=== PATIENT | male | born 1970 | race Caucasian/White ===

== ENCOUNTER 2017-08-19 10:36 | Emergency (ER) | payer SELFPAY ==
[2017-08-19] MEDS ORDERED: TYLENOL 325 MG PO STA (11:05)
[2017-08-19] MEDS ORDERED: TYLENOL 325 MG ONE (11:09)
--- NOTE | 2017-08-19 11:11 | ERPHSYRPT ---
- History of Present Illness Time Seen by Provider: 08/19/17 10:50 Source: patient Exam Limitations: clinical condition Patient Subjective Stated Complaint: states on thursday he was walking through a yard and stepped in a hole twisting right knee. states heard a pop and has pain in knee since then. Triage Nursing Assessment: ambulated to room per self. skin w/d, color normal. right knee tender to touch. no swelling or deformity noted. good pedal pulse. foot warm and normal color. good cap refill. Physician History: PATIENT WITH A HISTORY OF CHRONIC KNEE PAIN STATES HE STEPPED UNTO UNEVEN GROUND 2 DAYS AGO, TWISTED RIGHT KNEE AND FELT POPPING SENSATION OVER OUTER ASPECT OF KNEE, HAS PAIN UPON WEIGHT BEARING. Method of Injury: twisted Occurred: days ago Quality: constant Severity of Pain-Max: moderate Severity of Pain-Current: moderate Lower Extremities Pain: knee: right Modifying Factors: Improves With: movement Associated Symptoms: unable to bear weight Allergies/Adverse Reactions: No Known Drug Allergies Allergy (Unverified 08/19/17 11:02) Home Medications: Gabapentin [Neurontin] 600 mg PO TID 08/19/17 [History] Insulin Glargine,Hum.rec.anlog [Basaglar Kwikpen U-100] 80 unit SQ BID 08/19/17 [History] Lisinopril 20 mg [Zestril 20 MG] 20 mg PO DAILY 08/19/17 [History] Metformin HCl [Glucophage] 1,000 mg PO BID 08/19/17 [History] Omeprazole 40 mg PO DAILY 08/19/17 [History] Simvastatin 40 mg [Zocor 40 mg] 40 mg PO DAILY 08/19/17 [History] Hx Tetanus, Diphtheria Vaccination/Date Given: Yes Hx Influenza Vaccination/Date Given: No Hx Pneumococcal Vaccination/Date Given: No - Review of Systems Constitutional: No Symptoms Musculoskeletal: Injury, Joint Pain, Joint Swelling Skin: No Symptoms Psychological: No Symptoms - Past Medical History Pertinent Past Medical History: Yes Neurological History: Peripheral Neuropathy ENT History: Cataracts Cardiac History: High Cholesterol, Hypertension Endocrine Medical History: Diabetes Type II GI Medical History: GERD - Past Surgical History Past Surgical History: Yes - Social History Smoking Status: Current every day smoker How long have you smoked: 10 Exposure to second hand smoke: No Drug Use: none Patient Lives Alone: No - Nursing Vital Signs Nursing Vital Signs: Initial Vital Signs Pulse Rate 88 08/19/17 10:37 Respiratory Rate 18 08/19/17 10:37 Blood Pressure 151/81 08/19/17 10:37 O2 Sat by Pulse Oximetry 97 08/19/17 10:37 Pain Scale Pain Intensity 8 - Physical Exam General Appearance: no apparent distress Knees Exam: right knee: pain, soft tissue tenderness (TENDERNESS OVER LATERAL FEMEROL CONDYLE, PATELLA MIDLINE AND MOBILE WITH PAIN, LIMITED RANGE OF MOTION DUE TO PAIN. 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, NO FRACTURE OR DISLOCATION) Ordered Tests: Active Orders 24 hr Category Date Time Status KNEE (3 VIEWS) Stat Exams 08/19/17 11:04 Completed Medication Summary Discontinued Medications Generic Name Dose Route Start Last Admin Trade Name Freq PRN Reason Stop Dose Admin Acetaminophen 975 mg 08/19/17 11:05 08/19/17 11:10 Tylenol 325 Mg PO 08/19/17 11:06 975 mg STAT STA Administration Acetaminophen Confirm 08/19/17 11:09 Tylenol 325 Mg Administered 08/19/17 11:10 Dose 975 mg .ROUTE .STK-MED ONE - Progress Progress Note: 08/19/17 11:11 ADMINISTERED TYLENOL 975MG ORALLY, AND FITTED FOR CRUTCHES Counseled pt/family regarding: diagnosis, need for follow-up, rad results - Departure Time of Disposition: 12:00 Departure Disposition: Home Clinical Impression: INTERNAL DERANGEMENT RIGHT KNEE Condition: Stable Critical Care Time: No Additional Instructions: AMBULATE USING CRUTCHES NONWEIGHT BEARING RIGHT LOWER EXTREMITY FOR 1 WEEK. TORADOL 10MG EVERY 6 HOURS FOR PAIN NEEDED. PERCOCET 10/325 EVERY 4 HOURS FOR SEVERE PAIN. CONSULT YOUR PRIMARY CARE PROVIDER FOR FOLLOWUP. Prescriptions: Oxycodone HCl/Acetaminophen [Percocet 10-325 mg Tablet] 1 each PO Q4H PRN PRN # 10 tablet MDD 4 PRN Reason: Pain Ketorolac Tromethamine [Toradol] 10 mg PO Q6HPRN PRN #20 tablet PRN Reason: Pain
--- NOTE | 2017-08-19 11:43 | XRAY ---
Indication: Lateral pain following stepping injury 2 days ago. 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 Tiny posterior fabella. No other bony, articular, or soft tissue abnormalities.
[2017-08-19 12:00] VITALS: BP 136/77; PULSE 80; O2SAT 94
== END 2017-08-19 12:00 | disposition home or self-care (01) ==
LOC: ED 10:36
DX: M23.91 Unspecified internal derangement of right knee (principal); X50.1XXA Overexertion from prolonged static or awkward postures, initial encounter; Z79.899 Other long term (current) drug therapy
CPT/HCPCS: 73562; 99283; A9270-GY